=== PATIENT | female | born 1980 | race Caucasian/White ===

== ENCOUNTER → 2018-01-28 | Outpatient (CLI) | payer OTHER | LOC: FIMAGING 10:12 | PROVIDERS: ATTEND Advanced Practice Midwife | DX: O09.522 Supervision of elderly multigravida, second trimester (principal); O36.5920 Maternal care for other known or suspected poor fetal growth, second trimester, not applicable or unspecified; Z3A.24 24 weeks gestation of pregnancy ==

== ENCOUNTER 2018-05-01 12:06 | Inpatient (IN) | payer OTHER ==
[2018-05-01 13:40] LABS: PLATELET COUNT 291 10^3/uL (150-400)
[2018-05-01] MEDS ORDERED: MAGNESIUM SULF 4 GM/WATER 100 ML IV ONE (14:12)
[2018-05-01] MEDS ORDERED: CALCIUM GLUC 10% 1 GM/10 ML VIAL IVP PRN (14:12)
[2018-05-01] MEDS ORDERED: IBUPROFEN 600 MG TAB PO PRN (14:12)
[2018-05-01] MEDS ORDERED: TERBUTALINE SULFATE 1 MG/ML VIAL IV PRN (14:12)
[2018-05-01] MEDS ORDERED: MISOPROSTOL 200 MCG TAB PO PRN (14:12)
[2018-05-01] MEDS ORDERED: OXYTOCIN/RINGERS LACTATE 1,000 ML IV PRN (14:12)
[2018-05-01] MEDS ORDERED: LIDOCAINE 1% 300 MG/30 ML SDV SC PRN (14:12)
[2018-05-01] MEDS ORDERED: LR 1,000 ML IV PRN (14:12)
[2018-05-01] MEDS ORDERED: AMMONIA AROMATIC 1 EACH AMP IH PRN (14:12)
[2018-05-01] MEDS ORDERED: EPSOM SALT 454 GM TP PRN (14:12)
[2018-05-01] MEDS ORDERED: OLIVE OIL 118 ML BTL MISC PRN (14:12)
[2018-05-01] MEDS ORDERED: LABETALOL HCL 5 MG/ML 20 ML MDV IVP PRN (14:15)
[2018-05-01] MEDS ORDERED: LR 500 ML IV PRN (14:22)
[2018-05-01] MEDS ORDERED: OXYTOCIN/RINGERS LACTATE 500 ML IV SCH (14:30)
--- NOTE | 2018-05-01 15:01 | PDGENHP ---
History and Physical - Chief Complaint Pre-ecampsia with severe features, 37w2d - History of Present Illness Mannie is a 37 yo today at 37w2d by YANG of 05/20/18 who presented to [facility] clinic this afternoon for routine visit and had severe range BP's 170s/100s. Sent to L&D for further eval where she's had numerous additional mild and severe range pressures and +2 proteinuria on dip and PCR of 1.13. Other then some mild swelling in hands and LE, she is otherwise assymptomatic with normal labs. She does have h/o pre-eclampsia dx'd at 38 weeks in 1999 with her son Katerina. Did get MgSO4 and IOL at that time as well - delivered vaginally via VAVD bc of baby's position according to the patient. She did have epidural. No issues with chronic HTN afterwards. This otherwise complicated by AMA (did have normal NIPT and level 2 US c MFM), h/o PreE as above (declined baby ASA, did have normal baseline labs) , BMI of 35, H/o anxiety and depression (started on Lexapro in ), H/o Colpo vs leep? recent paps WNL, IUGR with G1 - delivered at 38 wks as above, Abn GTT with normal 3hr GTT. Labs: A pos Antibody neg RPR NR Rubella immune Hep B neg HIV neg Standard WNL Early GTT 121 26 wk GTT 152 (normal 3 hr) GCC neg Innatal normal XY female GBS NEGATIVE History Information - Allergies/Home Medication List Allergies/Adverse Reactions: acetaminophen [From Vicodin] Allergy (Verified 05/01/18 12:25) hydrocodone [From Vicodin] Allergy (Verified 05/01/18 12:25) hydroxyzine [From Vistaril] Allergy (Verified 05/01/18 12:25) tramadol Allergy (Verified 05/01/18 12:25) I have personally reviewed and updated: family history, medical history, social history, surgical history Past Medical History: Cervical dysplaisa, h/o PIH, H/o IUGR, anxiety depression - Surgical History Additional surgical history: VAVD with G1, 2016 hysteroscopy for IUD removal - Family History Additional family history: Mom was HOSPITALITY SERVICES MANAGER at [employer] years ago - recently due to GBM stage IV at 50 yoa Review of Systems Review of Systems: ROS: 10pt was reviewed & negative except for what was stated in HPI & below Physical Exam Physical Exam: Appears well, comfortable, pleasant, NAD. Gravid abdomen, longitudinal lie. Vertex by SCE per LR. Mild swelling in hands, +1 non-pitting in feet and shins. DTR's +1 upper and lower, 1 beat clonus. Lungs clear bilat. RRR. FHR 140s mod kyle, accels present, no decels. [place] none, irritable. SCE 2/50/anterior/soft/vertex per LR - Bishops score of 7 (favarable) Temp Pulse Resp BP Pulse Ox 70 167/95 H 05/01/18 14:37 05/01/18 14:37 Lab Data & Imaging Review 05/01/18 13:15 05/01/18 13:15 WBC 10.82 10^3/uL (3.80-9.50) H 05/01/18 13:15 RBC 4.28 10^6/uL (4.18-5.33) 05/01/18 13:15 Hgb 12.7 g/dL (12.6-16.3) 05/01/18 13:15 Hct 37.3 % (38.0-47.0) L 05/01/18 13:15 MCV 87.1 fL (81.5-99.8) 05/01/18 13:15 MCH 29.7 pg (27.9-34.1) 05/01/18 13:15 MCHC 34.0 g/dL (32.4-36.7) 05/01/18 13:15 RDW 13.4 % (11.5-15.2) 05/01/18 13:15 Plt Count 291 10^3/uL (150-400) 05/01/18 13:15 MPV 10.4 fL (8.7-11.7) 05/01/18 13:15 Neut % (Auto) 76.8 % (39.3-74.2) H 05/01/18 13:15 Lymph % (Auto) 15.0 % (15.0-45.0) 05/01/18 13:15 [place] % (Auto) 6.1 % (4.5-13.0) 05/01/18 13:15 Eos % (Auto) 1.0 % (0.6-7.6) 05/01/18 13:15 Baso % (Auto) 0.5 % (0.3-1.7) 05/01/18 13:15 Nucleat RBC Rel Count 0.0 % (0.0-0.2) 05/01/18 13:15 Absolute Neuts (auto) 8.32 10^3/uL (1.70-6.50) H 05/01/18 13:15 Absolute Lymphs (auto) 1.62 10^3/uL (1.00-3.00) 05/01/18 13:15 Absolute Monos (auto) 0.66 10^3/uL (0.30-0.80) 05/01/18 13:15 Absolute Eos (auto) 0.11 10^3/uL (0.03-0.40) 05/01/18 13:15 Absolute Basos (auto) 0.05 10^3/uL (0.02-0.10) 05/01/18 13:15 Absolute Nucleated RBC 0.00 10^3/uL (0-0.01) 05/01/18 13:15 Immature Gran % 0.6 % (0.0-1.1) 05/01/18 13:15 Immature Gran # 0.06 10^3/uL (0.00-0.10) 05/01/18 13:15 BUN 7 mg/dL (7-23) 05/01/18 13:15 Creatinine 0.5 mg/dL (0.6-1.0) L 05/01/18 13:15 Estimated GFR > 60 05/01/18 13:15 Uric Acid 4.8 mg/dL (2.5-6.8) 05/01/18 13:15 Total Bilirubin 0.2 mg/dL (0.1-1.4) 05/01/18 13:15 Conjugated Bilirubin 0.2 mg/dL (0.0-0.5) 05/01/18 13:15 Unconjugated Bilirubin 0.0 mg/dL (0.0-1.1) 05/01/18 13:15 AST 14 IU/L (14-46) 05/01/18 13:15 ALT 15 IU/L (9-52) 05/01/18 13:15 Lactate Dehydrogenase 399 IU/L (313-618) 05/01/18 13:15 Ur Random Creatinine 54.3 mg/dL 05/01/18 13:45 U Random Total Protein 62 mg/dL (0-11) H 05/01/18 13:45 Patient ABO/Rh A POSITIVE 05/01/18 13:30 Antibody Screen NEGATIVE 05/01/18 13:30 Laboratory Tests 05/01/18 13:45 Ur Random Creatinine 54.3 U Random Total Protein 62 H PCR 1.13 Assessment & Plan Assessment: 37 yo at 37w2d presented with new severe range BP's and signficant proteinuria - dx'd with pre-eclampsia with severe features. IOL: Favorable, start Pit now, AROM when able. Pain: Will want epidural. Pre-E: Mag now (4g bolus, 2g/hr), 20mg IV labetalol now and recheck [id number]. If still > 160/110 will escalate to 40mg, 80mg per protocol. Assymptomatic and labs WNL other than proteinuria. GBS negative. Rh pos, Rubella Immune. Depression: Continue Lexapro PP. High risk for PP hemorrhage due to IOL, morbid obesity, magnesium/PIH. AISHWARYA
[2018-05-01] MEDS ORDERED: OXYTOCIN 10 UNIT/ML VIAL ONE (15:40)
[2018-05-01] MEDS ORDERED: LIDOCAINE 1% 300 MG/30 ML SDV ONE (15:40)
[2018-05-01] MEDS ORDERED: OLIVE OIL 118 ML BTL MISC ONE (15:40)
[2018-05-01] MEDS ORDERED: TERBUTALINE SULFATE 1 MG/ML VIAL ONE (15:40)
[2018-05-01] MEDS ORDERED: AMMONIA AROMATIC 1 EACH AMP IH ONE (15:40)
[2018-05-01] MEDS ORDERED: MISOPROSTOL 200 MCG TAB ONE (15:40)
[2018-05-01] MEDS ORDERED: ONDANSETRON 4 MG/2 ML VIAL IVP PRN ×3 (18:47→23:10)
[2018-05-01] MEDS ORDERED: fentaNYL 2MCG/ML/BUP 0.1% RTU 100 ML BAG EP ONE (19:58)
[2018-05-01] MEDS ORDERED: BUPIVACAINE 0.25% 10 ML SDV ONE ×2 (19:59→21:41)
[2018-05-01] MEDS ORDERED: PHENYLEPHRINE HCL 100 MCG/ML SYR ONE ×2 (19:59→23:06)
[2018-05-01] MEDS ORDERED: PHENYLEPHRINE HCL 100 MCG/ML SYR IVP PRN ×2 (20:32→23:10)
[2018-05-01] MEDS ORDERED: NALOXONE HCL 0.4 MG/ML INJ IVP PRN ×2 (20:32→23:10)
--- NOTE | 2018-05-01 20:32 | PREANESOB ---
Obstetric Pre-Anesthesia Info - General Info Proposed Procedure: GARCÍA NPO Start Time: 10:00 : 3 Para: 1 YANG: 05/20/18 Gestational Age: 37 week(s) and 2 day(s) - Info Status: Full Term - Labor Status Magnesium Sulfate in Use: Yes Labor Epidural: Yes Anesthesia Allergies/Adverse Reactions: Allergy/AdvReac Type Severity Reaction Status Date / Time acetaminophen [From Vicodin] Allergy Verified 05/01/18 12:25 hydrocodone [From Vicodin] Allergy Verified 05/01/18 12:25 hydroxyzine [From Vistaril] Allergy Verified 05/01/18 12:25 tramadol Allergy Verified 05/01/18 12:25 Home Medications: Medication Instructions Recorded Aller-Yesi D 5-120 mg Tablet 10 mg DAILY 05/01/18 Lansoprazole 15 mg DAILY 05/01/18 Lexapro 10 MG 10 mg DAILY 05/01/18 Visit Medications: Generic Name Dose Route Start Last Admin Trade Name Freq PRN Reason Stop Dose Admin Ammonia (Aromatic Spirit) 1 each 05/01/18 14:12 Ammonia Aromatic IH 05/11/18 14:11 ONCE PRN Fainting Calcium Gluconate 1 gm 05/01/18 14:12 Calcium Gluconate IVP 10/28/18 14:11 PRN PRN Magnesium Toxicity Lactated Ringer's 1,000 mls @ 0 mls/hr 05/01/18 14:12 Lr IV 05/02/18 14:11 PRN PRN SEE PROTOCOL CONDITIONS Protocol Per Protocol Magnesium Sulfate 500 mls @ 50 mls/hr 05/01/18 14:30 Magnesium Sulfate 20 Gm/ 500 Ml (Premix) IV 10/28/18 14:29 CONT RORY Oxytocin/Lactated Ringer's 1,000 mls @ 0 mls/hr 05/01/18 14:12 Pitocin 20 Units/Lr (Premix) IV PRN PRN Post bleeding As Directed Lactated Ringer's 500 mls @ 500 mls/hr 05/01/18 14:22 Lr IV 05/02/18 14:22 PRN PRN Maternal Hypotension Oxytocin/Lactated Ringer's 500 mls @ 0 mls/hr 05/01/18 14:30 05/01/18 15:47 Pitocin 30 Units/Lr (Premix) IV 10/28/18 14:29 500 mls CONT RORY Administration Protocol Per Protocol Ibuprofen 600 mg 05/01/18 14:12 Motrin PO ONCE PRN post , pain Labetalol HCl 20 mg 05/01/18 14:15 05/01/18 14:37 Trandate Injection IVP 10/28/18 14:14 20 mg Q4HRS PRN Administration Agitation Lidocaine HCl 300 mg 05/01/18 14:12 Lidocaine Hcl 1% SC 10/28/18 14:11 ONCE PRN episiotomy Magnesium Sulfate 454 gm 05/01/18 14:12 Epsom Salt TP 10/28/18 14:11 Q1H PRN perineal discomfort Misoprostol 800 - 1,000 mcg 05/01/18 14:12 Cytotec PO 10/28/18 14:11 ONCE PRN Vaginal Atony/Bleeding [place] Oil 118 ml 05/01/18 14:12 Sweet Oil MISC 10/28/18 14:11 ONCE PRN perineal massage Ondansetron HCl 4 mg 05/01/18 18:47 05/01/18 18:52 Zofran IVP 10/28/18 18:46 4 mg Q6H PRN Administration Nausea/Vomiting, Can't Take PO Terbutaline Sulfate 0.25 mg 05/01/18 14:12 Brethine IV 10/28/18 14:11 ONCE PRN Tachysystole Discontinued Medications Generic Name Dose Route Start Last Admin Trade Name Freq PRN Reason Stop Dose Admin Ammonia (Aromatic Spirit) Confirm 05/01/18 15:40 Ammonia Aromatic Administered 05/01/18 15:41 Dose 1 each IH .STK-MED ONE Bupivacaine HCl Confirm 05/01/18 19:59 Sensorcaine 0.25% Sdv Administered 05/01/18 20:00 Dose 10 ml .ROUTE .STK-MED ONE Fentanyl/Bupivacaine HCl Confirm 05/01/18 19:58 Fentanyl/Bupivacaine/Ns 2 Mcg/Ml 0.1% (Premix Administered 05/01/18 19:59 Dose 100 ml EP .STK-MED ONE Magnesium Sulfate 100 mls @ 200 mls/hr 05/01/18 14:12 05/01/18 14:55 Magnesium Sulf 4 Gm (Premix) IV 05/01/18 14:41 100 mls ONCE ONE Administration Lidocaine HCl Confirm 05/01/18 15:40 Lidocaine Hcl 1% Administered 05/01/18 15:41 Dose 300 mg .ROUTE .STK-MED ONE Misoprostol Confirm 05/01/18 15:40 Cytotec Administered 05/01/18 15:41 Dose 1,000 mcg .ROUTE .STK-MED ONE [place] Oil Confirm 05/01/18 15:40 Sweet Oil Administered 05/01/18 15:41 Dose 118 ml MISC .STK-MED ONE Oxytocin Confirm 05/01/18 15:40 Pitocin Administered 05/01/18 15:41 Dose 40 unit .ROUTE .STK-MED ONE Phenylephrine HCl Confirm 05/01/18 19:59 Neosynephrine Administered 05/01/18 20:00 Dose 1,000 mcg .ROUTE .STK-MED ONE Terbutaline Sulfate Confirm 05/01/18 15:40 Brethine Administered 05/01/18 15:41 Dose 1 mg .ROUTE .STK-MED ONE - Anesthesia History Response to Local Anesthetics: Normal Anesthesia & Operative History: No Prior Problems Family Anesthesia History: Negative - Social History Substance Use/Abuse: Denies - Vital Signs Latest Vital Signs (Nursing): Temp Pulse Resp BP Pulse Ox 70 167/95 H 05/01/18 14:37 05/01/18 14:37 Height/Weight (Nursing): Height 162.56 cm Weight 102.058 kg - Focused Exam Neck exam: FROM Mallampati Score: Class 2 Mouth exam: normal dental/mouth exam Pulmonary: no respiratory distress Cardiovascular: regular rate and rhythym Labs: 05/01/18 13:15 05/01/18 13:15 Patient ABO/Rh A POSITIVE 05/01/18 13:30 Uric Acid 4.8 mg/dL (2.5-6.8) 05/01/18 13:15 Total Bilirubin 0.2 mg/dL (0.1-1.4) 05/01/18 13:15 Conjugated Bilirubin 0.2 mg/dL (0.0-0.5) 05/01/18 13:15 Unconjugated Bilirubin 0.0 mg/dL (0.0-1.1) 05/01/18 13:15 AST 14 IU/L (14-46) 05/01/18 13:15 ALT 15 IU/L (9-52) 05/01/18 13:15 Lactate Dehydrogenase 399 IU/L (313-618) 05/01/18 13:15 - Plan Anesthetic Plan: GARCÍA Consent Signed and on Chart: Yes Urgent/Emergent Case: Anes eval completed preop but documented later for safe timely pt care
[2018-05-01] MEDS ORDERED: fentaNYL 2MCG/ML/BUP 0.1% RTU 100 ML EP SCH (21:00)
[2018-05-01] MEDS ORDERED: LR 500 ML IV SCH (21:00)
[2018-05-01] MEDS ORDERED: LIDO/EPI 1% **for epidural** 30 ML SDV ONE (21:09)
[2018-05-01] MEDS ORDERED: MEPERIDINE 25 MG/0.5 ML AMP IVP PRN (23:10)
[2018-05-01] MEDS ORDERED: fentaNYL 100 MCG/2 ML INJ IVP PRN (23:10)
[2018-05-01] MEDS ORDERED: HYDROCODONE/APAP 5/325 TAB PO PRN (23:10)
[2018-05-01] MEDS ORDERED: OXYCODONE/APAP 5/325 TAB PO PRN (23:10)
--- NOTE | 2018-05-01 23:14 | PREANESOB ---
Obstetric Pre-Anesthesia Info - General Info Proposed Procedure: emergency c/s : 3 Para: 1 YANG: 05/20/18 Gestational Age: 37 week(s) and 2 day(s) - Info FHR Pattern: Non-reassuring - Labor Status Pitocin: In Use PIH: Moderate Magnesium Sulfate in Use: Yes Indications for Current Section: Non-reas. Status Labor Epidural: Yes Anesthesia Allergies/Adverse Reactions: Allergy/AdvReac Type Severity Reaction Status Date / Time acetaminophen [From Vicodin] Allergy Verified 05/01/18 12:25 hydrocodone [From Vicodin] Allergy Verified 05/01/18 12:25 hydroxyzine [From Vistaril] Allergy Verified 05/01/18 12:25 tramadol Allergy Verified 05/01/18 12:25 Home Medications: Medication Instructions Recorded Aller-Yesi D 5-120 mg Tablet 10 mg DAILY 05/01/18 Lansoprazole 15 mg DAILY 05/01/18 Lexapro 10 MG 10 mg DAILY 05/01/18 Visit Medications: Generic Name Dose Route Start Last Admin Trade Name Freq PRN Reason Stop Dose Admin Ammonia (Aromatic Spirit) 1 each 05/01/18 14:12 Ammonia Aromatic IH 05/11/18 14:11 ONCE PRN Fainting Calcium Gluconate 1 gm 05/01/18 14:12 Calcium Gluconate IVP 10/28/18 14:11 PRN PRN Magnesium Toxicity Lactated Ringer's 1,000 mls @ 0 mls/hr 05/01/18 14:12 Lr IV 05/02/18 14:11 PRN PRN SEE PROTOCOL CONDITIONS Protocol Per Protocol Magnesium Sulfate 500 mls @ 50 mls/hr 05/01/18 14:30 Magnesium Sulfate 20 Gm/ 500 Ml (Premix) IV 10/28/18 14:29 CONT RORY Oxytocin/Lactated Ringer's 1,000 mls @ 0 mls/hr 05/01/18 14:12 Pitocin 20 Units/Lr (Premix) IV PRN PRN Post bleeding As Directed Lactated Ringer's 500 mls @ 500 mls/hr 05/01/18 14:22 Lr IV 05/02/18 14:22 PRN PRN Maternal Hypotension Oxytocin/Lactated Ringer's 500 mls @ 0 mls/hr 05/01/18 14:30 05/01/18 15:47 Pitocin 30 Units/Lr (Premix) IV 10/28/18 14:29 500 mls CONT RORY Administration Protocol Per Protocol Fentanyl/Bupivacaine HCl 100 mls @ 0 mls/hr 05/01/18 21:00 Fentanyl/Bupivacaine/Ns 2 Mcg/Ml 0.1% (Premix EP 05/11/18 20:59 CONT RORY Protocol As Directed Lactated Ringer's 500 mls @ 0 mls/hr 05/01/18 21:00 Lr IV 10/28/18 20:59 CONT RORY As Directed Ibuprofen 600 mg 05/01/18 14:12 Motrin PO ONCE PRN post , pain Labetalol HCl 20 mg 05/01/18 14:15 05/01/18 14:37 Trandate Injection IVP 10/28/18 14:14 20 mg Q4HRS PRN Administration Agitation Lidocaine HCl 300 mg 05/01/18 14:12 Lidocaine Hcl 1% SC 10/28/18 14:11 ONCE PRN episiotomy Magnesium Sulfate 454 gm 05/01/18 14:12 Epsom Salt TP 10/28/18 14:11 Q1H PRN perineal discomfort Misoprostol 800 - 1,000 mcg 05/01/18 14:12 Cytotec PO 10/28/18 14:11 ONCE PRN Vaginal Atony/Bleeding Naloxone HCl 0.4 mg 05/01/18 20:32 Narcan IVP 10/28/18 20:31 PRN PRN Respiratory depression [place] Oil 118 ml 05/01/18 14:12 Sweet Oil MISC 10/28/18 14:11 ONCE PRN perineal massage Ondansetron HCl 4 mg 05/01/18 18:47 05/01/18 18:52 Zofran IVP 10/28/18 18:46 4 mg Q6H PRN Administration Nausea/Vomiting, Can't Take PO Ondansetron HCl 4 mg 05/01/18 20:32 Zofran IVP 05/02/18 20:31 Q4HRS PRN Nausea/Vomiting, Can't Take PO Phenylephrine HCl 100 mcg 05/01/18 20:32 Neosynephrine IVP 10/28/18 20:31 .Q2M PRN Hypotension Terbutaline Sulfate 0.25 mg 05/01/18 14:12 Brethine IV 10/28/18 14:11 ONCE PRN Tachysystole Discontinued Medications Generic Name Dose Route Start Last Admin Trade Name [place] PRN Reason Stop Dose Admin Ammonia (Aromatic Spirit) Confirm 05/01/18 15:40 Ammonia Aromatic Administered 05/01/18 15:41 Dose 1 each IH .STK-MED ONE Bupivacaine HCl Confirm 05/01/18 19:59 Sensorcaine 0.25% Sdv Administered 05/01/18 20:00 Dose 10 ml .ROUTE .STK-MED ONE Bupivacaine HCl Confirm 05/01/18 21:41 Sensorcaine 0.25% Sdv Administered 05/01/18 21:42 Dose 10 ml .ROUTE .STK-MED ONE Fentanyl/Bupivacaine HCl Confirm 05/01/18 19:58 Fentanyl/Bupivacaine/Ns 2 Mcg/Ml 0.1% (Premix Administered 05/01/18 19:59 Dose 100 ml EP .STK-MED ONE Magnesium Sulfate 100 mls @ 200 mls/hr 05/01/18 14:12 05/01/18 14:55 Magnesium Sulf 4 Gm (Premix) IV 05/01/18 14:41 100 mls ONCE ONE Administration Lidocaine HCl Confirm 05/01/18 15:40 Lidocaine Hcl 1% Administered 05/01/18 15:41 Dose 300 mg .ROUTE .STK-MED ONE Lidocaine/Epinephrine Confirm 05/01/18 21:09 Xylocaine 1%-Epi 1:200,000 Administered 05/01/18 21:10 Dose 30 ml .ROUTE .STK-MED ONE Misoprostol Confirm 05/01/18 15:40 Cytotec Administered 05/01/18 15:41 Dose 1,000 mcg .ROUTE .STK-MED ONE [place] Oil Confirm 05/01/18 15:40 Sweet Oil Administered 05/01/18 15:41 Dose 118 ml MISC .STK-MED ONE Oxytocin Confirm 05/01/18 15:40 Pitocin Administered 05/01/18 15:41 Dose 40 unit .ROUTE .STK-MED ONE Phenylephrine HCl Confirm 05/01/18 19:59 Neosynephrine Administered 05/01/18 20:00 Dose 1,000 mcg .ROUTE .STK-MED ONE Phenylephrine HCl Confirm 05/01/18 23:06 Neosynephrine Administered 05/01/18 23:07 Dose 1,000 mcg .ROUTE .STK-MED ONE Terbutaline Sulfate Confirm 05/01/18 15:40 Brethine Administered 05/01/18 15:41 Dose 1 mg .ROUTE .STK-MED ONE - Anesthesia History Response to Local Anesthetics: Normal Anesthesia & Operative History: No Prior Problems Family Anesthesia History: Negative - Vital Signs Latest Vital Signs (Nursing): Temp Pulse Resp BP Pulse Ox 70 167/95 H 05/01/18 14:37 05/01/18 14:37 Height/Weight (Nursing): Height 162.56 cm Weight 102.058 kg Labs: 05/01/18 13:15 05/01/18 13:15 Patient ABO/Rh A POSITIVE 05/01/18 13:30 Uric Acid 4.8 mg/dL (2.5-6.8) 05/01/18 13:15 Total Bilirubin 0.2 mg/dL (0.1-1.4) 05/01/18 13:15 Conjugated Bilirubin 0.2 mg/dL (0.0-0.5) 05/01/18 13:15 Unconjugated Bilirubin 0.0 mg/dL (0.0-1.1) 05/01/18 13:15 AST 14 IU/L (14-46) 05/01/18 13:15 ALT 15 IU/L (9-52) 05/01/18 13:15 Lactate Dehydrogenase 399 IU/L (313-618) 05/01/18 13:15 - Plan Consent Signed and on Chart: No Urgent/Emergent Case: Anes eval completed preop but documented later for safe timely pt care General Comments: Emergent, consent for epidural on chart
--- NOTE | 2018-05-01 23:15 | POSTANESTH ---
Post Anesthetic Evaluation Cardiovascular Status: Tx Hyper/Hypo-tension Respiratory Status: Normal, Stable Level of Consciousness/Mental Status: Can Participate in Eval, Mildly Sleepy, Arousable Pain Control: Adequate, Prn Tx Ordered Nausea/Vomiting Control: Adequate, Prn Tx Ordered Complications Possibly Related to Anesthesia: None Noted
[2018-05-01] MEDS ORDERED: morphINE PF 5 MG/10 ML INJ ONE (23:29)
[2018-05-01] MEDS ORDERED: OXYTOCIN 100 UNITS/10 ML VIAL ONE (23:29)
[2018-05-01] MEDS ORDERED: ePHEDrine SULFATE 25 MG/5 ML SYR ONE (23:29)
[2018-05-01] MEDS ORDERED: MAGNESIUM HYDROXIDE 30 ML UDCUP PO PRN (23:43)
[2018-05-01] MEDS ORDERED: LACTULOSE 20 GM/30 ML UDCUP PO PRN (23:43)
[2018-05-01] MEDS ORDERED: SIMETHICONE 80 MG TAB CHEW PO PRN (23:43)
[2018-05-01] MEDS ORDERED: PROMETHAZINE HCL 25 MG/ML INJ IVP PRN (23:43)
[2018-05-01] MEDS ORDERED: POLYETHYLENE GLYCOL 3350 17 GM PKT PO PRN (23:43)
[2018-05-01] MEDS ORDERED: BISACODYL 10 MG SUPP PR PRN (23:43)
--- NOTE | 2018-05-01 23:43 | OBPROG ---
Labor Progress Note Assessment/Plan: The patient had magnesium and Pitocin started soon after admission. She received 20mg Labetalol IV x 1 soon after admission for severe range BP's that successfully brought them down into the mild range. Her initial exam was 2cm and after she got into a regular ctx pattern with Pitocin I performed AROM by applying FSE with clear fluid returned. FHR Category I and Category II throughout this initial part of her labor. Ultimately did get an epidural and got some pain relief. I repeated her SCE after she was getting comfortable with her first epidural and she was 4/80/-1. We continued to titrate her Pitocin and BP's were normal to still mild range during the first hours that she had her first epidural. See anethesia's notes regarding subsequent events involving refractory hypotension, but ultimately she needed to have her epidural replaced as it wasn't working well. Soon after the placement and bolus of her second epidural she developed significant hypotension to the 80s/40s. The patient immediately felt nauseous, lethargic. FHR began to demonstrate recurrent late decels. She was given multiple larger doses of Phenylephrine per anesthesias orders - Dr. Hallman was present at the bedside the the entirety since the second epidural placement. None of these were effective at raising her blood pressure. Baby continued to have prolonged late decelerations. Ultimately that pattern deteriorated into a terminal bradycardia to the 60s and we made the decision to emergently move to the OR for primary . Only had time to get verbal consent from patient and partner during this process. Subjective/Intrapartum Course: Mannie had started to get uncomfortable with regular ctx's and requested epidural. That first epidural seemed to be working well to a moderate degree, but eventually again more uncomfortable and requested anesthesia return to address pain control. Objective: 05/01/18 13:15 05/01/18 13:15 Patient ABO/Rh A POSITIVE 05/01/18 13:30 Uric Acid 4.8 mg/dL (2.5-6.8) 05/01/18 13:15 Total Bilirubin 0.2 mg/dL (0.1-1.4) 05/01/18 13:15 Conjugated Bilirubin 0.2 mg/dL (0.0-0.5) 05/01/18 13:15 Unconjugated Bilirubin 0.0 mg/dL (0.0-1.1) 05/01/18 13:15 AST 14 IU/L (14-46) 05/01/18 13:15 ALT 15 IU/L (9-52) 05/01/18 13:15 Lactate Dehydrogenase 399 IU/L (313-618) 05/01/18 13:15 Temp Pulse Resp BP Pulse Ox 70 167/95 H 05/01/18 14:37 05/01/18 14:37 - SVE Dilation (cm): 4 Effacement (%): 80 Station: -1 Membranes: AROM Amniotic Fluid Color: Clear - Contraction Pattern Assessment Current Contraction Pattern: Regular - FHR Assessment Ascencio FHR (bpm): 130 FHR Pattern Variability: Moderate FHR Category: 3 (As the patient was having issues with refractory hypotension after epidural (re)placement, FHR tracing demonstrated recurrent late declerations with return to moderate variability between. Ultimately deteriorated into terminal bradycardia to the 60-70s when decision was made to emergently move to the OR.) Oxytocin Orders Assessment - Pre-Induction/Augmentation Assessment Gestational Age: 37 week(s) and 2 day(s) ICD10 Worksheet Patient Problems: Problems Problem Status Onset AMA (advanced maternal age) multigravida 35+ Acute Depression Acute intolerance to labor, delivered, current hospitalization Acute Pre-eclampsia, severe, delivered Acute S/P primary low transverse Acute - ICD10 Problem Qualifiers (1) S/P primary low transverse (2) intolerance to labor, delivered, current hospitalization (3) Pre-eclampsia, severe, delivered (4) Depression Qualifiers: Depression Type: unspecified Qualified Code(s): F32.9 - Major depressive disorder, single episode, unspecified (5) AMA (advanced maternal age) multigravida 35+ Qualifiers: Trimester: third trimester Qualified Code(s): O09.523 - Supervision of elderly multigravida, third trimester
--- NOTE | 2018-05-01 23:43 | POSTOPPROG ---
Post Op Note Date of Operation: 05/02/18 Surgeon: Ryan Winter Security Supervisor: Dimple Horn Anesthesiologist: Jake Hallman Anesthesia: Epidural Pre-op Diagnosis: Pre-eclampsia with severe features, intoll of labor, Hypotension Post-op Diagnosis: Same Procedure: Emergent PLTCS Findings: Baby girl in OA position, no nuchal cord, normal tubes/ovaries/uterus Inf/Abcess present in the surg proc area at time of surgery?: No EBL: 700 Complications: None, count was not able to be performed due to emergent nature of procedure, so XRAY was peformed postop to ensure no retained sponges, surgical instruments , etc. Specimen(s): Placenta to path, Cord blood gasses sent
--- NOTE | 2018-05-01 23:43 | SUROPNOTE ---
[facility] Operative Report - Surgery Date of Operation: 05/02/18 Surgeon: Ryan Winter Program Schedule Clerk: Dimple Horn Anesthesiologist: Jake Hallman Anesthesia: Epidural Pre-op Diagnosis: 1. Pre-eclampsia with severe features 2. Profound medication-refractory hypotension s/p epidural placement 3. intollerance of labor Post-op Diagnosis: 1. Same Procedure: 1. Emergent PLTCS Findings: 1. Baby girl in OA position, no nuchal cord, initially limp but then vigorous 2. Normal tubes/ovaries/uterus Inf/Abcess present in the surg proc area at time of surgery?: No EBL: 700 Complications: None. The procedure was done emergently so we did do a Betadine splash prep and we did not have time to perform instrument count prior to incision. For this reason XRAY was performed postop to ensure no retained sponges, surgical instruments, etc. Specimen(s): Placenta to path, Cord blood gasses sent Technique: See labor progress notes - but briefly this patient was being induced for pre- eclampsia with severe features, on magnesium sulfate, and Pitocin for induction. She received an epidural for pain control and immediately after epidural placement developed profound hypotension that was refractory to multiple large doses of phenylephrine. The FHR tracing during this time deteriorated from Category II to recurrent late variable decels, and ultimately to sustained terminal bradycardia in the 60's - and the decision was made to move emergently to the OR. The patient was taken to the OR where epidural was bolused and anesthesia found to be adequate. The patient was then positioned supine with a leftward tilt and a time-out was performed. She was given weight-based antibiotics prior to skin incision with Ancef. The abdomen was prepped using betadine splash due to emergent nature. Draped in normal sterile fashion. A Pfannenstiel skin incision was made with the scalpel and carried down to the fascia. The fascia was incised in the midline and the incision extended bilaterally bluntly. The fascia was dissected off of the underlying rectus muscles superiorly and inferiorly also bluntly. The rectus were in the midline and the peritoneum identified and entered bluntly without issue. The peritoneal incision was extended and the bladder blade was then placed. The vesicouterine junction was identified and a bladder flap created sharply and developed bluntly. A transverse incision was made with the scalpel in the lower uterine segment and extended with cephalad and caudad traction on the incision edges. The head was encountered and easily elevated out of the pelvis and delivered atraumatically, followed by the shoulders and body. The nose and mouth were bulb suctioned. We did not wait for 60 seconds before clamping and cutting the cord as the baby was initially limp. The was handed to pediatric staff. Cord blood gases were sent and the placenta was sent to pathology. The uterus was then exteriorized and carefully wiped of all debris. The uterus was closed in two layers - the first layer was running with 180 0-vloc and the second a vertical imbricating layer using 0-vicryl. The gutters were cleared of all clots. The uterine incision was reinspected and found to be hemostatic after placement of one additional figure of eight sutures of 3-0 vicryl. The uterus was then returned to the abdomen. The fascia was elevated and the rectus muscles and subcutaneous tissues were found to be hemostatic. The fascia was closed with a running 0-Vicryl - single suture. The subcutaneous tissues were irrigated and hemostasis obtained. The subcutaneous space was closed with interrupted sutures of 2-0 vicryl. The skin was closed with 4-0 vloc undyed and then covered with Medipore dressing. The patient tolerated the procedure and was taken to recovery in stable condition. Lap, needle, sponge, and instrument counts were not able to be performed prior to start so we did perform Xray postop which confirmed no retained sponges or surgical instruments. I was present and scrubbed for the entire case.
[2018-05-01] MEDS ORDERED: oxyCODONE IR 5 MG TAB PO PRN (23:51)
[2018-05-02] MEDS ORDERED: AZITHROMYCIN IV 500 MG in NS 250 ML IV ONE (00:14)
[2018-05-02] MEDS: Mag Sulf 500 ML IV SCH ×2 (02:01→14:16)
[2018-05-02] MEDS: IBUPROFEN 600 MG TAB PO SCH ×4 (02:51→17:50)
[2018-05-02] MEDS: KETOROLAC 30 MG/1 ML SDV IVP SCH ×3 (03:00→15:01)
[2018-05-02] MEDS: ACETAMINOPHEN 325 MG TAB PO SCH ×3 (07:09→16:43)
--- NOTE | 2018-05-02 09:16 | OBPP ---
Progress Note Assessment/Plan: Assessment: 37 y/o POD 0 s/p emergent LTCS secondary to hypotension and intolerance to labor, IOL secondary to pre eclampsia with severe features Plan: Borderline UOP currently, will give 1 bolus of 200cc LR now and observe closely. BP have improved and are now in normal range. No need for anti- HTNives currently. Continue MgSo4 until 24 hours post delivery, which will be approximately 00:00. Re start Lexapro this am. support. 05/02/18 09:13 Subjective/ Course: 05/02/18 09:11 Pt is generally feeling well this am. She has good pain control with IV Toradol and Duramorph now. She denies SPARKS, blurred vision, scotomata or RUQ pain. She is happy with her baby, who is doing well and nursing. She is very thirsty but otherwise no complaints. Objective: 05/02/18 07:30 05/01/18 13:15 Patient ABO/Rh A POSITIVE 05/01/18 13:30 Uric Acid 4.8 mg/dL (2.5-6.8) 05/01/18 13:15 Total Bilirubin 0.2 mg/dL (0.1-1.4) 05/01/18 13:15 Conjugated Bilirubin 0.2 mg/dL (0.0-0.5) 05/01/18 13:15 Unconjugated Bilirubin 0.0 mg/dL (0.0-1.1) 05/01/18 13:15 AST 14 IU/L (14-46) 05/01/18 13:15 ALT 15 IU/L (9-52) 05/01/18 13:15 Lactate Dehydrogenase 399 IU/L (313-618) 05/01/18 13:15 Temp Pulse Resp BP Pulse Ox 37.1 C 70 30 H 115/65 96 05/02/18 07:00 05/01/18 14:37 05/02/18 07:20 05/02/18 07:00 05/02/18 07:55 Uterine Position/Fundal Height: Umbilicus -2 Uterine Tone: Firm Physical Exam - Physical Exam General Appearance: alert, no apparent distress Neck: non-tender, full range of motion, supple Respiratory: chest non-tender, lungs clear, normal breath sounds Cardiac/Chest: regular rate, rhythm Abdomen: normal bowel sounds, incision (c/d/i) Extremities: swelling (tr), Fallon's sign (neg) DTR- Lower Extremities: Knee (R): 2+, Knee (L): 2+ (no clonus)
[2018-05-02] MEDS ORDERED: LR 1,000 ML IV SCH (09:30)
[2018-05-02] MEDS: ESCITALOPRAM OXALATE 10 MG TAB PO SCH (09:30)
[2018-05-02] MEDS: SENNOSIDES/DOCUSATE SODIUM TAB PO SCH (10:06)
[2018-05-02] MEDS ORDERED: KETOROLAC 30 MG/1 ML SDV IVP SCH (21:30)
[2018-05-03] MEDS: ACETAMINOPHEN 325 MG TAB PO SCH ×3 (06:10→18:59)
[2018-05-03] MEDS: IBUPROFEN 600 MG TAB PO SCH ×3 (06:11→18:58)
--- NOTE | 2018-05-03 09:07 | OBPP ---
Progress Note Assessment/Plan: I assumed care from Dr. Finnegan at 0800 this morning. Assessment: 37 yo [id number] POD#2 s/p emergent C/S in setting of preeclampsia with severe features, s/p 24 hours of Mag sulfate . Doing well. Had some elevated BPs yesterday evening. Will continue to monitor closely. Encourage ambulation. Routine post op cares and support. Irene Wilkes MD, [facility] 05/03/18 10:31 Subjective/ Course: 05/02/18 09:11 Pt is generally feeling well this am. She has good pain control with IV Toradol and Duramorph now. She denies SPARKS, blurred vision, scotomata or RUQ pain. She is happy with her baby, who is doing well and nursing. She is very thirsty but otherwise no complaints. 05/03/18 10:44 Pt doing well. Sitting up in bed, . Denies SPARKS, vis changes, epigastric or RUQ pain. Mod lochia. Has been up and voided without difficulty. NO chest pain or lightheadedness. Objective: 05/02/18 07:30 05/01/18 13:15 Patient ABO/Rh A POSITIVE 05/01/18 13:30 Uric Acid 4.8 mg/dL (2.5-6.8) 05/01/18 13:15 Total Bilirubin 0.2 mg/dL (0.1-1.4) 05/01/18 13:15 Conjugated Bilirubin 0.2 mg/dL (0.0-0.5) 05/01/18 13:15 Unconjugated Bilirubin 0.0 mg/dL (0.0-1.1) 05/01/18 13:15 AST 14 IU/L (14-46) 05/01/18 13:15 ALT 15 IU/L (9-52) 05/01/18 13:15 Lactate Dehydrogenase 399 IU/L (313-618) 05/01/18 13:15 Temp Pulse Resp BP Pulse Ox 36.6 C 70 30 H 135/88 H 95 05/02/18 17:10 05/01/18 14:37 05/02/18 07:20 05/03/18 04:58 05/03/18 05:25 BP overnight, since magsulfate turned off - 109-142 / 68-88. Gen - pleasant, NAD CV - RRR chest - CTAB abd - + BS, fundus firm at u-2, NT, inc - C/D/I no dressing or steri strips ext - 1+ pitting, 2+ DTRs, no clonus, no calf tenderness Uterine Position/Fundal Height: Umbilicus -2 Uterine Tone: Firm
[2018-05-03] MEDS: PANTOPRAZOLE SODIUM 40 MG TAB PO SCH (09:21)
[2018-05-03] MEDS: ESCITALOPRAM OXALATE 10 MG TAB PO SCH (09:22)
[2018-05-03] MEDS: SENNOSIDES/DOCUSATE SODIUM TAB PO SCH ×3 (12:23→21:29)
--- NOTE | 2018-05-03 13:49 | POSTANESTH ---
Post Anesthetic Evaluation Cardiovascular Status: Normal, Stable Respiratory Status: Normal, Stable Level of Consciousness/Mental Status: Can Participate in Eval Pain Control: Adequate, Prn Tx Ordered Nausea/Vomiting Control: Adequate, Prn Tx Ordered Complications Possibly Related to Anesthesia: None Noted Notes: s/p epidural and emergent CS/ Back site clear. block resolved
[2018-05-04] MEDS: IBUPROFEN 600 MG TAB PO SCH ×5 (01:00→21:05)
[2018-05-04] MEDS: ACETAMINOPHEN 325 MG TAB PO SCH ×7 (01:01→21:10)
[2018-05-04] MEDS: ESCITALOPRAM OXALATE 10 MG TAB PO SCH (08:55)
[2018-05-04] MEDS: PANTOPRAZOLE SODIUM 40 MG TAB PO SCH (08:55)
--- NOTE | 2018-05-04 12:09 | OBPP ---
Progress Note Assessment/Plan: Assessment: 37 y/o POD 3 s/p emergent LTCS secondary to hypotension and intolerance to labor, IOL secondary to pre eclampsia with severe features Plan: She has had some borderline elevated bp especially associated with emotional episodes. She is able to bring down her BP when she calms down. She denies SPARKS , scotomata, or unusual pain now. I feel she should stay today to get more emotional and support and so we can carefully monitor her BP. I increased her dose of Lexapro now to 20 mg and she will get an extra dose now. Will add prn Xanax low dose to use in case of Panic attack, and just knowing that it is available, may be what she needs emotionally. We will see her in the office this week for a BP check and to [facility] to help facilitation outpatient therapy and support. 05/02/18 09:13 05/04/18 12:11 Subjective/ Course: 05/02/18 09:11 Pt is generally feeling well this am. She has good pain control with IV Toradol and Duramorph now. She denies SPARKS, blurred vision, scotomata or RUQ pain. She is happy with her baby, who is doing well and nursing. She is very thirsty but otherwise no complaints. 05/03/18 10:44 Pt doing well. Sitting up in bed, . Denies SPARKS, vis changes, epigastric or RUQ pain. Mod lochia. Has been up and voided without difficulty. NO chest pain or lightheadedness. 05/04/18 12:04 Pt is very tearful and anxious today. She felt increased anxiety last night and developed symptoms of a panic attack. She was able to walk around a get emotional support from nursing staff last night and she did sleep after 1 dose of PO Benadryl. This am she says she is not feeling better. She is concerned about her low milk supply and the baby's increased weight loss. She is anxious about going home today without the right tools to feed the baby and take care of herself. She began having more anxiety and depression during the and was started on Lexapro 10 mg in January, she feels she may need to increase her dose and that she would benefit from something else to use in case of another Panic attack. Her is very supportive at the bedside. Physically she is doing well, good pain control with PO Ibuprofen and Tylenol alone. She is ambulating and voiding without difficulty and has min lochia. She plans to walk more today and take a shower, maybe go sit outside on the patio for mental health. 05/04/18 12:09 Objective: 05/02/18 07:30 05/01/18 13:15 Patient ABO/Rh A POSITIVE 05/01/18 13:30 Uric Acid 4.8 mg/dL (2.5-6.8) 05/01/18 13:15 Total Bilirubin 0.2 mg/dL (0.1-1.4) 05/01/18 13:15 Conjugated Bilirubin 0.2 mg/dL (0.0-0.5) 05/01/18 13:15 Unconjugated Bilirubin 0.0 mg/dL (0.0-1.1) 05/01/18 13:15 AST 14 IU/L (14-46) 05/01/18 13:15 ALT 15 IU/L (9-52) 05/01/18 13:15 Lactate Dehydrogenase 399 IU/L (313-618) 05/01/18 13:15 Temp Pulse Resp BP Pulse Ox 37.2 C 74 20 147/79 H 93 05/04/18 08:00 05/04/18 08:00 05/04/18 08:00 05/04/18 10:00 05/04/18 08:00 Uterine Position/Fundal Height: Umbilicus -2 Uterine Tone: Firm Physical Exam - Physical Exam General Appearance: alert, no apparent distress Neck: non-tender, full range of motion, supple Respiratory: chest non-tender, lungs clear, normal breath sounds Cardiac/Chest: regular rate, rhythm Abdomen: normal bowel sounds, incision (c/d/i) Extremities: swelling (no), Fallon's sign (neg)
[2018-05-04] MEDS ORDERED: ESCITALOPRAM OXALATE 10 MG TAB PO ONE (12:15)
[2018-05-04] MEDS: SENNOSIDES/DOCUSATE SODIUM TAB PO SCH ×2 (12:26→21:06)
--- NOTE | 2018-05-04 15:17 | ASMTCMCOM ---
CM Note CM Note Notes: CM met with patient and . Patient states she is doing better after talking with Dr. Finnegan as she was feeling anxiety around the baby not eating well and dropping weight. She states she has good support from friends/co-workers. She states recognition of the unplanned complications from elevated blood pressure, baby's heart rate dropping and subsequent are factors that increase her anxiety. She states having talked with the MD and nurses, she feels better knowing pos- anxiety is more prevalent than she understood. 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 She states she plans on following up with the OB next week for blood pressure check and baby weight. She was also given info for post- support groups. CM shared [employer] as a possible source to find a therapist more convenient to her and that accepts her health plan. Her will transport her home and they will arrange to have a friend help moss picker her car as she drove here for an appointment and did not plan on giving . We discussed coping skills, re: breathing exercises, using mindfulness of saying out loud what she is feeling and and gratitude for what she does feel good about. Patient and state they feel like they have a good plan moving forward. CM available to support if any additional CM needs arise. Date Signed: 05/04/2018 03:17 PM Electronically Signed By:Anabel Schumacher
[2018-05-04] MEDS: ALPRAZolam 0.25 MG TAB PO PRN (20:27)
[2018-05-05] MEDS: ACETAMINOPHEN 325 MG TAB PO SCH ×2 (03:13→10:30)
[2018-05-05] MEDS: IBUPROFEN 600 MG TAB PO SCH ×3 (03:14→09:04)
[2018-05-05] MEDS ORDERED: ESCITALOPRAM OXALATE 10 MG TAB PO SCH (09:00)
[2018-05-05] MEDS: PANTOPRAZOLE SODIUM 40 MG TAB PO SCH (09:04)
[2018-05-05] MEDS: SENNOSIDES/DOCUSATE SODIUM TAB PO SCH (09:58)
[2018-05-05] MEDS: ALPRAZolam 0.25 MG TAB PO PRN (10:27)
[2018-05-05] MEDS ORDERED: LABETALOL HCL 200 MG TAB PO SCH (11:45)
--- NOTE | 2018-05-05 11:45 | OBPP ---
Progress Note Assessment/Plan: 37 y/o POD4 s/p emergent PLTCS secondary to hypotension and intolerance to labor, IOL secondary to pre eclampsia with severe features. PIH: - BP's elevated this AM and yesterday - Diastolics > 100 overnight. Will start labetalol 200mg BID now, RTC for BP check later this week. - No changing/evolving s/sx of PIH. Good diuresis. Anxiety: - Lexarpo increased to 20mg daily and PRN Xanax is helping. - Will dc with scripts for both and plan to meet with [facility] providers at our office later this week. - Rh pos, Rubella immune. - Home today, f/u in office in 2-3 days. JM Subjective/ Course: 05/02/18 09:11 Pt is generally feeling well this am. She has good pain control with IV Toradol and Duramorph now. She denies SPARKS, blurred vision, scotomata or RUQ pain. She is happy with her baby, who is doing well and nursing. She is very thirsty but otherwise no complaints. 05/03/18 10:44 Pt doing well. Sitting up in bed, . Denies SPARKS, vis changes, epigastric or RUQ pain. Mod lochia. Has been up and voided without difficulty. NO chest pain or lightheadedness. 05/04/18 12:04 Pt is very tearful and anxious today. She felt increased anxiety last night and developed symptoms of a panic attack. She was able to walk around a get emotional support from nursing staff last night and she did sleep after 1 dose of PO Benadryl. This am she says she is not feeling better. She is concerned about her low milk supply and the baby's increased weight loss. She is anxious about going home today without the right tools to feed the baby and take care of herself. She began having more anxiety and depression during the and was started on Lexapro 10 mg in January, she feels she may need to increase her dose and that she would benefit from something else to use in case of another Panic attack. Her is very supportive at the bedside. Physically she is doing well, good pain control with PO Ibuprofen and Tylenol alone. She is ambulating and voiding without difficulty and has min lochia. She plans to walk more today and take a shower, maybe go sit outside on the patio for mental health. 05/04/18 12:09 05/05/18 15:53 Sinjun in general is doing much better this AM. Did take some of the Xanax last night and some this morning. Pain is minimal/well-controlled without any narcotics. She is having regular BM's. No issues w her incision. BP's high last night and again this AM. BF going better. Objective: 05/02/18 07:30 05/01/18 13:15 Patient ABO/Rh A POSITIVE 05/01/18 13:30 Uric Acid 4.8 mg/dL (2.5-6.8) 05/01/18 13:15 Total Bilirubin 0.2 mg/dL (0.1-1.4) 05/01/18 13:15 Conjugated Bilirubin 0.2 mg/dL (0.0-0.5) 05/01/18 13:15 Unconjugated Bilirubin 0.0 mg/dL (0.0-1.1) 05/01/18 13:15 AST 14 IU/L (14-46) 05/01/18 13:15 ALT 15 IU/L (9-52) 05/01/18 13:15 Lactate Dehydrogenase 399 IU/L (313-618) 05/01/18 13:15 Temp Pulse Resp BP Pulse Ox 36.9 C 78 20 148/94 H 95 05/04/18 20:00 05/05/18 03:15 05/04/18 20:00 05/05/18 03:15 05/04/18 20:00 Uterine Position/Fundal Height: Umbilicus -2 Uterine Tone: Firm Physical Exam - Physical Exam Abdomen: incision (CDI with suture, no s/sx of infection)
--- NOTE | 2018-05-05 12:07 | OBGCSDC ---
General Delivery Information - General Info : 3 Para: 1 Abortions: 1 L&D Analgesia/Anesthesia Type: Epidural Admission Date: 05/01/18 Labs: Patient ABO/Rh A POSITIVE 05/01/18 13:30 Hct 36.1 % (38.0-47.0) L 05/02/18 07:30 - Hospital Course Intrapartum: Mannie had started to get uncomfortable with regular ctx's and requested epidural. That first epidural seemed to be working well to a moderate degree, but eventually again more uncomfortable and requested anesthesia return to address pain control. : 05/02/18 09:11 Pt is generally feeling well this am. She has good pain control with IV Toradol and Duramorph now. She denies SPARKS, blurred vision, scotomata or RUQ pain. She is happy with her baby, who is doing well and nursing. She is very thirsty but otherwise no complaints. 05/03/18 10:44 Pt doing well. Sitting up in bed, . Denies SPARKS, vis changes, epigastric or RUQ pain. Mod lochia. Has been up and voided without difficulty. NO chest pain or lightheadedness. 05/04/18 12:04 Pt is very tearful and anxious today. She felt increased anxiety last night and developed symptoms of a panic attack. She was able to walk around a get emotional support from nursing staff last night and she did sleep after 1 dose of PO Benadryl. This am she says she is not feeling better. She is concerned about her low milk supply and the baby's increased weight loss. She is anxious about going home today without the right tools to feed the baby and take care of herself. She began having more anxiety and depression during the and was started on Lexapro 10 mg in January, she feels she may need to increase her dose and that she would benefit from something else to use in case of another Panic attack. Her is very supportive at the bedside. Physically she is doing well, good pain control with PO Ibuprofen and Tylenol alone. She is ambulating and voiding without difficulty and has min lochia. She plans to walk more today and take a shower, maybe go sit outside on the patio for mental health. 05/04/18 12:09 Vaginal - Diagnosis Amniotic Fluid Color: Clear - Delivery Providers Surgeon: [employer] Laundry Worker: Dimple Horn Anesthesiologist: Jake Hallman - Delivery Number of Prior Sections: 0 Indications for Current Section: Non-reas. Status Non-surgical Procedures: Amniotomy, FSE, IUPC Surgical Procedures: Emergent, Low Transverse Intra-op Complications: None EBL: 800cc Data YANG: 05/20/18 Gestational Age: 37 week(s) and 6 day(s) Ascencio Delivery Date: 05/01/18 Delivery Time: 22:45 Sex of Infant: Female Score (1 Min): 8 Score (5 Min): 9 Discharge Information - Discharge Information Prescriptions: ALPRAZolam [Xanax 0.25 MG (*)] 0.25 mg PO TID PRN #16 tab PRN Reason: Anxiety Escitalopram Oxalate [Lexapro 10 MG] 20 mg PO DAILY #30 tab Labetalol HCl [Trandate 200 mg (*)] 200 mg PO BID 30 Days tab Condition: Fair Instruction/Follow Up: See Instruction Sheet, One Week, Two Weeks, Four Weeks, Six Weeks (BP and Mood check in 2-3d, Incision in 2wks, Mood in 4wks, PP in 6wks )
[2018-05-05 15:08] VITALS: BP 129/85
== END 2018-05-05 14:45 | disposition home or self-care (01) | DRG 788 ==
LOC: OBSVTOIN 12:06 → FLD 12:06 → FOB 05-03 09:56
PROVIDERS: ADMIT Obstetrics & Gynecology; ATTEND Advanced Practice Midwife
PROC: 10D00Z1 Extraction of Products of Conception, Low, Open Approach (ICD-10-PCS; principal; 2018-05-02)
DX: O14.14 Severe pre-eclampsia complicating childbirth (principal); Z37.0 Single live birth; Z3A.37 37 weeks gestation of pregnancy; O76 Abnormality in fetal heart rate and rhythm complicating labor and delivery; Z23 Encounter for immunization
CPT/HCPCS: G0008; J0456; J0610; J1200; J1885; J2274; J2370; J2405; J2590; J3105; J3475